=== PATIENT | female | born 1940 | race Caucasian/White ===

== ENCOUNTER 2025-04-21 22:13 | Emergency (ER) | payer MEDICARE, OTHER ==
[2025-04-22] MEDS ORDERED: HYDROcodone/Acetaminophen 5/325 mg Tablet ONE (00:08)
== END 2025-04-22 02:35 | disposition home or self-care (01) ==
LOC: ERS 22:13
DX: S42.201A Unspecified fracture of upper end of right humerus, initial encounter for closed fracture (principal); S90.121A Contusion of right lesser toe(s) without damage to nail, initial encounter; I25.2 Old myocardial infarction; E03.9 Hypothyroidism, unspecified; Z55.6 Problems related to health literacy; Z79.890 Hormone replacement therapy; Z79.899 Other long term (current) drug therapy; W19.XXXA Unspecified fall, initial encounter
CPT/HCPCS: 70450; 93005